=== PATIENT | male | born 1975 | race Two or more races ===

== ENCOUNTER 2018-10-27 11:37 | Outpatient (CLI) | payer OTHER ==
[2018-10-28] MEDS ORDERED: COZAAR25 MG PO (11:36)
[2018-10-28] MEDS ORDERED: ATORVASTATIN CA20 MG PO (11:36)
== END 2018-10-27 11:40 | disposition home or self-care (01) ==
LOC: RAD 11:37
DX: K43.2 Incisional hernia without obstruction or gangrene (principal); I10 Essential (primary) hypertension

== ENCOUNTER 2018-11-05 06:15 | Day surgery (SDC) | payer OTHER ==
[~2018-11-05 06:15] MED LIST: ATORVASTATIN CA20 MG PO; COZAAR25 MG PO
[2018-11-05] MEDS ORDERED: ZOFRAN4 MG PO (10:57)
[2018-11-05] MEDS ORDERED: TRAMADOL HCL50 MG PO (10:57)
[2018-11-05] MEDS ORDERED: TYLENOL EXTRA500 MG PO (10:57)
[2018-11-05] MEDS ORDERED: NEURONTIN300 MG PO (10:57)
[2018-11-05] MEDS ORDERED: MIRALAX17 GM PO (10:57)
== END 2018-11-05 12:55 | disposition home or self-care (01) ==
LOC: CIR.AMB 06:15
DX: K42.0 Umbilical hernia with obstruction, without gangrene (principal)